=== PATIENT | female | born 1950 | race Caucasian/White ===

== ENCOUNTER → 2018-12-27 | Outpatient (CLI) | payer MEDICARE ==
[2018-12-27 10:22] LABS: ALBUMIN 3.5 gm/dl (3.1-4.5); BUN 19 mg/dl (7-24); CHLORIDE 105 mmol/L (98-107); CREATININE 1.03 mg/dL (0.55-1.02); FREE T4 1.01 ng/dl (0.76-1.46); IRON 23 ug/dL (50-170); POTASSIUM 4.2 mmol/L (3.5-5.1); SODIUM 141 mmol/L (136-145); TOTAL IRON BINDING CAPACITY 401 ug/dl (250-450)
[2018-12-27 10:29] LABS: VITAMIN D, 25-HYDROXY 33.9 ng/mL (30-100)
[2018-12-28 08:10] LABS: DHEA SULFATE 17.2 ug/dL (20.4-186.6)
[2018-12-29 14:08] LABS: THYROGLOBULIN ANTIBODY 1.6 IU/mL (0.0-0.9)
== END | disposition home or self-care (01) ==
LOC: LAB 09:04
PROVIDERS: Internal Medicine
DX: L65.9 Nonscarring hair loss, unspecified (principal); E03.9 Hypothyroidism, unspecified; E55.9 Vitamin D deficiency, unspecified; R53.83 Other fatigue; R25.2 Cramp and spasm

== ENCOUNTER → 2024-03-23 | Outpatient (CLI) | payer MEDICARE ==
[2024-03-23 18:04] LABS: BILIRUBIN Negative (Negative); BLOOD 1+ (Negative); CLARITY Turbid (Clear); COLOR Yellow (Yellow); GLUCOSE Negative (Negative); KETONE Negative (Negative); LEUKO ESTERASE 3+ (Negative); NITRITE Negative (Negative); PH 5.5 (4.5-8.0); SPECIFIC GRAVITY <= 1.005 (1.001-1.030); UROBILINOGEN 0.2 E.U./dl (0.0-1.0)
[2024-03-23 18:17] LABS: WBC TNTC wbc/hpf (0-5)
== END | disposition home or self-care (01) ==
LOC: LAB 17:37
PROVIDERS: ATTEND Internal Medicine
DX: R30.0 Dysuria (principal)

== ENCOUNTER 2024-05-20 13:34 | Emergency (ER) | payer OTHER ==
[~2024-05-20] VITALS: Wt 63.5 kg
[2024-05-20] MEDS ORDERED: CYCLOBENZAPRINE5 M3 PO (18:21)
[2024-05-20] MEDS ORDERED: Cyclobenzaprine Hydrochlorid 10 MG TAB PO ONE (18:50)
== END 2024-05-20 18:38 | disposition home or self-care (01) ==
LOC: ED 13:34
DX: M54.2 Cervicalgia (principal); M25.511 Pain in right shoulder; M25.551 Pain in right hip; Z88.8 Allergy status to other drugs, medicaments and biological substances; F17.200 Nicotine dependence, unspecified, uncomplicated; V49.49XA Driver injured in collision with other motor vehicles in traffic accident, initial encounter; Y93.I9 Activity, other involving external motion; Y92.488 Other paved roadways as the place of occurrence of the external cause; Y99.8 Other external cause status

== ENCOUNTER 2024-09-11 11:49 | Emergency (ER) | payer MEDICARE ==
[~2024-09-11] VITALS: Ht 157.4 cm; Wt 61.2 kg
[~2024-09-11 11:49] MED LIST: CYCLOBENZAPRINE5 M3 PO
== END 2024-09-11 13:01 | disposition home or self-care (01) ==
LOC: ED 11:49
DX: S63.502A Unspecified sprain of left wrist, initial encounter (principal); M25.512 Pain in left shoulder; Z88.8 Allergy status to other drugs, medicaments and biological substances; W00.0XXA Fall on same level due to ice and snow, initial encounter; Y93.89 Activity, other specified; Y92.89 Other specified places as the place of occurrence of the external cause; Y99.8 Other external cause status